=== PATIENT | male | born 1990 | race African-American/Black ===

== ENCOUNTER 2016-11-18 02:32 | Emergency (ER) | payer OTHER ==
[~2016-11-18] VITALS: Ht 172.7 cm; Wt 75.0 kg
[~2016-11-18 02:32] MED LIST: Z.0.NO CURRENT MEDS
[2016-11-18 02:38] VITALS: BP 143/82; PULSE 81; RESP 18; TEMP 98.2; O2SAT 95
[2016-11-18 03:01] LABS: AUTOMATED NEUTROPHIL # 5.4 TH/MM3 (1.8-7.7); BASOPHIL # 0.1 TH/MM3 (0-0.2); BASOPHIL % 0.9 % (0.0-2.0); EOSINOPHIL % 0.2 % (0.0-4.0); HEMATOCRIT 46.5 % (39.0-51.0); HEMO FLAGS DIFF FINAL; LYMPH % 27.7 % (9.0-44.0); LYMPHOCYTE # 2.4 TH/MM3 (1.0-4.8); MEAN CELL VOLUME 86.4 FL (80.0-100.0); MEAN CORPUSCULAR HEMOGLOBIN 28.6 PG (27.0-34.0); MEAN CORPUSCULAR HGB CONC 33.1 % (32.0-36.0); MONO % 8.8 % (0.0-8.0); NEUT % 62.4 % (16.0-70.0); PLATELET COUNT 311 TH/MM3 (150-450); RED BLOOD COUNT 5.38 MIL/MM3 (4.50-5.90); RED CELL DISTRIBUTION WIDTH 13.9 % (11.6-17.2); WHITE BLOOD COUNT 8.6 TH/MM3 (4.0-11.0)
[2016-11-18 03:18] LABS: AMPHETAMINE, URINE NEG (NEG); BARBITURATES, URINE NEG (NEG); COCAINE, URINE NEG (NEG)
--- NOTE | 2016-11-18 03:20 | PD ---
HPI Chief Complaint: Psychiatric Symptoms Time Seen by Provider: 03:00 Travel History International Travel<30 days: No Contact w/Intl Traveler<30days: No Traveled to known affect area: No History of Present Illness HPI Patient is a 25-year-old male brought into the emergency Department under Luque act for suicidal ideations. According to the Luque comport patient was found screaming and stating that he was "done with life". According to the Luque act report patient's girlfriend stated that he is suicidal, bipolar and unstable. Patient admits to drinking alcohol this evening. And according to the Luque act report there may be drugs in his system. Patient denies any suicidal or homicidal ideations, he denies any previous suicide attempt. He further denies any visual auditory hallucinations. He has no physical pain at this time. FORMERLY [facility], [facility] Past Medical History Medical History: Denies Significant Hx ?: Not Past Surgical History Other Surgery: Yes (MENISCIS TEAR ) Social History Alcohol Use: Yes Tobacco Use: Yes (1/2 PACK ) Allergies-Medications (Allergen,Severity, Reaction): Coded Allergies: No Known Allergies (Verified Allergy, Mild, 02/15/04) Reported Meds & Prescriptions Reported Meds & Active Scripts Active Review of Systems ROS Limitations: Intoxication Except as stated in HPI: all other systems reviewed are Neg Psychiatric: Positive: Suicidal Ideations, Mood Disorder, Substance Abuse Physical Exam Exam Limitations: Intoxication Narrative GENERAL: Well-developed, well-nourished, alert female. Resting comfortably in no acute distress. SKIN: Focused skin assessment warm/dry. Superficial abrasion to bridge of nose HEAD: Atraumatic. Normocephalic. EYES: Pupils equal and round. No scleral icterus. No injection or drainage. ENT: No nasal bleeding or discharge. Mucous membranes pink and moist. NECK: Trachea midline. No JVD. CARDIOVASCULAR: Regular rate and rhythm. No murmur appreciated. RESPIRATORY: No accessory muscle use. Clear to auscultation. Breath sounds equal bilaterally. GASTROINTESTINAL: Abdomen soft, non-tender, nondistended. Hepatic and splenic margins not palpable. MUSCULOSKELETAL: No obvious deformities. No clubbing. No cyanosis. No edema. NEUROLOGICAL: Awake and alert. No obvious cranial nerve deficits. Motor grossly within normal limits. Normal speech. PSYCHIATRIC: Appropriate mood and affect; insight and judgment impaired. Data Data Last Documented VS Vital Signs Date Time Temp Pulse Resp B/P Pulse Ox O2 Delivery O2 Flow Rate FiO2 11/18/16 02:38 98.2 81 18 143/82 95 Orders Complete Blood Count With Diff (11/18/16 02:36) Comprehensive Metabolic Panel (11/18/16 02:36) Psych Screen (11/18/16 02:36) Drug Screen, Random Urine (11/18/16 02:36) Alcohol (Ethanol) (11/18/16 02:36) Salicylates (Aspirin) (11/18/16 02:36) Tylenol (Acetaminophen) (11/18/16 02:36) Restraints Non-Violent KANE.Q3H (11/18/16 03:20) Haloperidol Inj (Haldol Inj) (11/18/16 04:15) Labs Laboratory Tests Test 11/18/16 11/18/16 02:45 02:49 White Blood Count 8.6 TH/MM3 Red Blood Count 5.38 MIL/MM3 Hemoglobin 15.4 GM/DL Hematocrit 46.5 % Mean Corpuscular Volume 86.4 FL Mean Corpuscular Hemoglobin 28.6 PG Mean Corpuscular Hemoglobin 33.1 % Concent Red Cell Distribution Width 13.9 % Platelet Count 311 TH/MM3 Mean Platelet Volume 8.4 FL Neutrophils (%) (Auto) 62.4 % Lymphocytes (%) (Auto) 27.7 % Monocytes (%) (Auto) 8.8 % Eosinophils (%) (Auto) 0.2 % Basophils (%) (Auto) 0.9 % Neutrophils # (Auto) 5.4 TH/MM3 Lymphocytes # (Auto) 2.4 TH/MM3 Monocytes # (Auto) 0.8 TH/MM3 Eosinophils # (Auto) 0.0 TH/MM3 Basophils # (Auto) 0.1 TH/MM3 CBC Comment DIFF FINAL Differential Comment Sodium Level 143 MEQ/L Potassium Level 3.7 MEQ/L Chloride Level 108 MEQ/L Carbon Dioxide Level 24.3 MEQ/L Anion Gap 11 MEQ/L Blood Urea Nitrogen 18 MG/DL Creatinine 1.34 MG/DL Estimat Glomerular Filtration 79 ML/MIN Rate Random Glucose 105 MG/DL Calcium Level 9.2 MG/DL Total Bilirubin 0.1 MG/DL Aspartate Amino Transf 25 U/L (AST/SGOT) Alanine Aminotransferase 22 U/L (ALT/SGPT) Alkaline Phosphatase 82 U/L Total Protein 8.4 GM/DL Albumin 4.0 GM/DL Salicylates Level 2.5 MG/DL Acetaminophen Level LESS THAN 2.0 MCG/ML Ethyl Alcohol Level 307 MG/DL Urine Opiates Screen NEG Urine Barbiturates Screen NEG Urine Amphetamines Screen NEG Urine Benzodiazepines Screen NEG Urine Cocaine Screen NEG Urine Cannabinoids Screen NEG MDM Medical Decision Making Medical Screen Exam Complete: Yes Emergency Medical Condition: Yes Interpretation(s) Laboratory Tests Test 11/18/16 11/18/16 02:45 02:49 White Blood Count 8.6 TH/MM3 Red Blood Count 5.38 MIL/MM3 Hemoglobin 15.4 GM/DL Hematocrit 46.5 % Mean Corpuscular Volume 86.4 FL Mean Corpuscular Hemoglobin 28.6 PG Mean Corpuscular Hemoglobin 33.1 % Concent Red Cell Distribution Width 13.9 % Platelet Count 311 TH/MM3 Mean Platelet Volume 8.4 FL Neutrophils (%) (Auto) 62.4 % Lymphocytes (%) (Auto) 27.7 % Monocytes (%) (Auto) 8.8 % Eosinophils (%) (Auto) 0.2 % Basophils (%) (Auto) 0.9 % Neutrophils # (Auto) 5.4 TH/MM3 Lymphocytes # (Auto) 2.4 TH/MM3 Monocytes # (Auto) 0.8 TH/MM3 Eosinophils # (Auto) 0.0 TH/MM3 Basophils # (Auto) 0.1 TH/MM3 CBC Comment DIFF FINAL Differential Comment Sodium Level 143 MEQ/L Potassium Level 3.7 MEQ/L Chloride Level 108 MEQ/L Carbon Dioxide Level 24.3 MEQ/L Anion Gap 11 MEQ/L Blood Urea Nitrogen 18 MG/DL Creatinine 1.34 MG/DL Estimat Glomerular Filtration 79 ML/MIN Rate Random Glucose 105 MG/DL Calcium Level 9.2 MG/DL Total Bilirubin 0.1 MG/DL Aspartate Amino Transf 25 U/L (AST/SGOT) Alanine Aminotransferase 22 U/L (ALT/SGPT) Alkaline Phosphatase 82 U/L Total Protein 8.4 GM/DL Albumin 4.0 GM/DL Salicylates Level 2.5 MG/DL Acetaminophen Level LESS THAN 2.0 MCG/ML Ethyl Alcohol Level 307 MG/DL Urine Opiates Screen NEG Urine Barbiturates Screen NEG Urine Amphetamines Screen NEG Urine Benzodiazepines Screen NEG Urine Cocaine Screen NEG Urine Cannabinoids Screen NEG Vital Signs Date Time Temp Pulse Resp B/P Pulse Ox O2 Delivery O2 Flow Rate FiO2 11/18/16 02:38 98.2 81 18 143/82 95 Differential Diagnosis Acute intoxication versus mood disorder versus substance abuse versus suicidal ideations versus other Narrative Course Patient is a 25-year-old male presenting to emergency Department under Luque act for suicidal ideations. On arrival patient attempted to flee the emergency Department naked, for this reason he was placed in restraints. Labs ordered and pending, psych screening ordered. Patient's vital signs are stable. Patient was moved to a room that would allow us to visualize him easier. His left arm was let out of restraints for comfort however patient continues to try to get out of bed and continues to be argumentative. CBC is unremarkable Chemistry, creatinine slightly elevated at 1.34 Urine drug screen is negative, acetaminophen level unremarkable, salicylate level was 2.5 Alcohol level is 307 0420- Patient continues to be loud, disruptive, combative. Patient is medically cleared for psychiatric evaluation at this time. Diagnosis Primary Impression: Medical clearance for psychiatric admission Additional Impression: Alcohol intoxication Qualified Code: F10.920 - Alcohol intoxication, uncomplicated Condition: Stable Stefany Aly ORTHOPHOTOGRAPHY TECHNICIAN Nov 18, 2016 03:20
[2016-11-18 03:26] LABS: ANION GAP 11 MEQ/L (5-15); AST (GOT) 25 U/L (15-37); BICARBONATE 24.3 MEQ/L (21.0-32.0); BLOOD UREA NITROGEN 18 MG/DL (7-18); CHLORIDE 108 MEQ/L (98-107); GLOMERULAR FILTRATION RATE 79 ML/MIN (>89); POTASSIUM 3.7 MEQ/L (3.5-5.1); SODIUM (NA) 143 MEQ/L (136-145)
[2016-11-18 03:28] LABS: ALKALINE PHOSPHATASE 82 U/L (45-117); ALT (GPT) 22 U/L (12-78); TOTAL BILIRUBIN ADULT 0.1 MG/DL (0.2-1.0)
[2016-11-18] MEDS ORDERED: HALOPERIDOL LACTATE 5 MG/ML AMP IM ONE (04:15)
[2016-11-18 04:20] LABS: ACETAMINOPHEN LESS THAN 2.0 MCG/ML (10.0-30.0)
[2016-11-18 07:16] VITALS: BP 126/77; PULSE 56; RESP 18; O2SAT 97
[2016-11-18 09:38] VITALS: BP 122/74; PULSE 74; RESP 18; TEMP 98.4; O2SAT 98
--- NOTE | 2016-11-18 13:33 | PD ---
History of Present Illness Chief Complaint: Psychiatric Symptoms Time Seen by Provider: 13:00 Travel History International Travel<30 Days: No Contact w/Intl Traveler<30days: No Known affected area: No Legal Status Legal Status: Luque Act Luque Act Signed By: Gilson Rodriguez History of Present Illness: History of Present Illness HPI Patient is a 25-year-old male with history of ADD as a child who is brought into the emergency Department under Luque act initiated by [facility]. The Luque act report alleges that the patient was found screaming and stating that he was "done with life".The patient's girlfriend stated that he is suicidal, bipolar and unstable. EMR is reviewed. The patient has documented visits to [facility] and was last treated in 2006. Current BAL is 307. The patient was monitored in J pod until he was clinically sober. He is alert, oriented, calm and engaging. His speech is clear and logical, coherent. His gait is steady. There is no thought process or content disturbance. He denies any suicidal or homicidal ideation. He states " We came home and we had too much to drink. Probably were loud and the police were called by neighbors. I just did not want to go to prison so I came to the hospital instead.". I was not thinking of hurting myself or of hurting anyone else". He denies any previous attempts at harming himself. He is currently not in treatment. he denies that he drinks every day and only on weekends. PFSH Past Medical History Medical History: Denies Significant Hx ?: Not Past Surgical History Other Surgery: Yes (MENISCIS TEAR ) Psychiatric History Psychiatric History Hx Psychiatric Treatment: ADHD treated as a child. History of Inpatient Treatment: Yes ([facility]) Guns or firearms in home: No Social History Single male. Lives with his girlfriend. Works in construction. Hx Alcohol Use: Yes Hx Tobacco Use: Yes (1/2 PACK ) Hx Substance Use: Yes (1/2 ppd cigarettes, ETOH approx. 1/2 gallon rum on weekends) Substance Use Type: Alcohol, Nicotine/Cigarettes Hx of Substance Use Treatment: No Family Psychiatric History Mother with bipolar disorder. Allergies-Medications (Allergen,Severity, Reaction): Coded Allergies: No Known Allergies (Verified Allergy, Mild, 02/15/04) Reported Meds & Prescriptions Reported Meds & Active Scripts Active Review of Systems Except as stated in HPI: all other systems reviewed are Neg Exam Alert: Yes [place]: Person (ox4) Mood: Calm Affect: Appropriate Speech: Clear, Logical Eye Contact: Normal Memory Intact: Immediate (no impairmetn) Hallucinations: Other (Negative) Delusions: No Suicidal: Ideation (deneis any) Homicidal: Ideation (denies any. ) Insight/Judgement FAir. Not impaired MDM Medical Decision Making Medical Record Reviewed: Yes Assessment/Plan 25 year old male under a BA after the police were called to his home. The police allege that he was screaming and stating that he was done with his life. The patient intoxicated at the time. He states now that he did not want to go to prison therefore he made suicidal statements. At this time he is clinically sober. He does not meet BA criteria and is requesting discharge . Orders Complete Blood Count With Diff (11/18/16 02:36) Comprehensive Metabolic Panel (11/18/16 02:36) Psych Screen (11/18/16 02:36) Drug Screen, Random Urine (11/18/16 02:36) Alcohol (Ethanol) (11/18/16 02:36) Salicylates (Aspirin) (11/18/16 02:36) Tylenol (Acetaminophen) (11/18/16 02:36) Restraints Non-Violent KANE.Q3H (11/18/16 03:20) Haloperidol Inj (Haldol Inj) (11/18/16 04:15) Diet Regular Basic (11/18/16 Breakfast) Diet Regular Basic (11/18/16 Lunch) Results Vital Signs Date Time Temp Pulse Resp B/P Pulse Ox O2 Delivery O2 Flow Rate FiO2 11/18/16 09:38 98.4 74 18 122/74 98 Room Air 11/18/16 07:16 56 18 126/77 97 Room Air 11/18/16 02:38 98.2 81 18 143/82 95 Laboratory Tests Test 11/18/16 11/18/16 02:45 02:49 White Blood Count 8.6 Red Blood Count 5.38 Hemoglobin 15.4 Hematocrit 46.5 Mean Corpuscular Volume 86.4 Mean Corpuscular Hemoglobin 28.6 Mean Corpuscular Hemoglobin 33.1 Concent Red Cell Distribution Width 13.9 Platelet Count 311 Mean Platelet Volume 8.4 Neutrophils (%) (Auto) 62.4 Lymphocytes (%) (Auto) 27.7 Monocytes (%) (Auto) 8.8 Eosinophils (%) (Auto) 0.2 Basophils (%) (Auto) 0.9 Neutrophils # (Auto) 5.4 Lymphocytes # (Auto) 2.4 Monocytes # (Auto) 0.8 Eosinophils # (Auto) 0.0 Basophils # (Auto) 0.1 CBC Comment DIFF FINAL Differential Comment Sodium Level 143 Potassium Level 3.7 Chloride Level 108 Carbon Dioxide Level 24.3 Anion Gap 11 Blood Urea Nitrogen 18 Creatinine 1.34 Estimat Glomerular Filtration 79 Rate Random Glucose 105 Calcium Level 9.2 Total Bilirubin 0.1 Aspartate Amino Transf 25 (AST/SGOT) Alanine Aminotransferase 22 (ALT/SGPT) Alkaline Phosphatase 82 Total Protein 8.4 Albumin 4.0 Salicylates Level 2.5 Acetaminophen Level LESS THAN 2.0 Ethyl Alcohol Level 307 Urine Opiates Screen NEG Urine Barbiturates Screen NEG Urine Amphetamines Screen NEG Urine Benzodiazepines Screen NEG Urine Cocaine Screen NEG Urine Cannabinoids Screen NEG Diagnosis Primary Impression: Alcohol intoxication Additional Impression: Medical clearance for psychiatric admission Psychiatrically Cleared: Yes Departure Forms: Tests/Procedures Patient Instructions: General Instructions, Suicide Prevention for Adults (ED) Additional Instructions: Return to ED for any worsening. Stop drinking alcohol. Med/ Other Pt Specific Info: No Meds Exist/No RX given Disposition: 01 DISCHARGE HOME Condition: Stable Problem Qualifiers Primary Impression: Alcohol intoxication Qualified Code: F10.920 - Alcohol intoxication, uncomplicated Alanna Venegas [facility] Nov 18, 2016 13:32
== END 2016-11-18 13:50 | disposition home or self-care (01) ==
LOC: NEPD 02:32 → NEPJ 13:50
DX: F10.129 Alcohol abuse with intoxication, unspecified (principal); F31.9 Bipolar disorder, unspecified; F17.210 Nicotine dependence, cigarettes, uncomplicated; Y90.8 Blood alcohol level of 240 mg/100 ml or more
CPT/HCPCS: 80053; 80307; 85025; 99285